=== PATIENT | female | born 1935 | race African-American/Black ===

== ENCOUNTER 2017-05-06 09:28 | Day surgery (SDC) | payer MEDICARE ==
[2017-05-05 13:03] VITALS: BMI 36.5
[~2017-05-06 09:28] MED LIST: FLU VACC TS2017-18 (>65YR) 0.5 ML SYRINGE IM ONE
[2017-05-06 10:05] LABS: Hematocrit 27.5 % (36.0-47.0); Mean Platelet Volume 7.4 fL (7.4-10.4); Red Blood Cell (RBC) Count 2.25 mill/uL (4.20-5.40); White Blood Cell (WBC) Count 2.8 thou/uL (4.8-10.8)
[2017-05-06 10:06] LABS: #Lymphocytes 0.4 thou/uL (1.20-3.40); #Monocytes 0.2 thou/uL (0.11-0.59); #Neutrophils 2.2 thou/uL (1.40-6.50); %Basophils 0.8 % (0.0-1.0); %Eosinophils 1.1 % (0.0-10.0); %Lymphocytes 13.8 % (21.0-51.0); %Monocytes 5.9 % (0.0-10.0)
[2017-05-06 10:07] LABS: PTT 31.8 SEC (22.9-36.1)
[2017-05-06 10:33] LABS: Macrocytosis MODERATE=16-30 cells (100X) (0-5/hpf); Polychromasia SLIGHT = 2-3 cells (100X) (0-2/hpf)
[2017-05-06] MEDS ORDERED: Sodium Bicarbonate 2.4 MEQ/5 ML ONE (10:54)
[2017-05-06] MEDS ORDERED: Lidocaine 1% PF 5 ML VIAL ONE (10:54)
[2017-05-06 12:12] VITALS: BP 115/71; TEMP 97.6
--- NOTE | 2017-05-06 13:33 | ULT ---
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 FINDINGS: Four quadrant ultrasound showed a moderate to large amount of ascites in all quadrants. The patient has never had a paracentesis procedure previously. Five liters of yellowish-clear acidic fluid remov ed from the right lower quadrant. The exam was terminated after 5 liters due to no history of prior abdominal paracentesis procedures. Post procedure ultrasound continues to show residual moderate asc ites. PROCEDURE NOTE: The procedure was discussed with the patient. The right lower quadrant was chosen for puncture. The overlying skin was prepped and draped in a sterile manner. Local anesthesia was administered with L idocaine and bicarbonate. A tiny skin incision was made with a scalpel. A 5 [place] catheter, w ith needle in place, was introduced into the acidic fluid in the right lower quadrant, under ultrasou nd guidance. The needle was removed, and the catheter was advanced. The catheter was attached to rushing ction and drainage. Five liters of acidic fluid was removed. There was no problems or complications . POS: BILL
== END 2017-05-06 11:55 | disposition home or self-care (01) ==
LOC: ULT 09:28
PROVIDERS: ATTEND Internal Medicine Gastroenterology
PROC: 0W9G3ZX Drainage of Peritoneal Cavity, Percutaneous Approach, Diagnostic (ICD-10-PCS; principal; 2017-05-06)
PROC: BW40ZZZ Ultrasonography of Abdomen (ICD-10-PCS; 2017-05-06)
DX: K75.4 Autoimmune hepatitis (principal); R18.8 Other ascites; E11.22 Type 2 diabetes mellitus with diabetic chronic kidney disease; I12.9 Hypertensive chronic kidney disease with stage 1 through stage 4 chronic kidney disease, or unspecified chronic kidney disease; N18.4 Chronic kidney disease, stage 4 (severe); E89.0 Postprocedural hypothyroidism; E78.5 Hyperlipidemia, unspecified; D64.9 Anemia, unspecified; Z79.899 Other long term (current) drug therapy; Z95.0 Presence of cardiac pacemaker; Z90.710 Acquired absence of both cervix and uterus
CPT/HCPCS: 36415; 49083; 85025; 85610; 85730; 88112; 88305; J2001

== ENCOUNTER 2017-06-24 07:13 | Day surgery (SDC) | payer MEDICARE ==
[2017-06-23 11:54] VITALS: BMI 41.1
[2017-06-24 07:58] LABS: INR-International Normal Ratio 1.3; PTT 31.8 SEC (22.9-36.1); Prothrombin Time 16.3 SEC (12.0-14.7)
[2017-06-24 08:09] LABS: #Eosinphils 0.1 thou/uL (0.0-0.7); #Lymphocytes 0.4 thou/uL (1.20-3.40); #Monocytes 0.1 thou/uL (0.11-0.59); #Neutrophils 1.8 thou/uL (1.40-6.50); %Eosinophils 2.9 % (0.0-10.0); %Lymphocytes 16.8 % (21.0-51.0); %Monocytes 4.1 % (0.0-10.0); %Neutrophils 76.3 % (42.0-75.0); Hemoglobin 9.5 g/dL (12.0-16.0); Mean Corpuscular HGB CONC 33.1 g/dL (32.0-36.0); Mean Platelet Volume 7.4 fL (7.4-10.4); Platelet Count 79 thou/uL (130-400); RBC Distribution Width 13.8 % (11.5-14.5); Red Blood Cell (RBC) Count 2.37 mill/uL (4.20-5.40); White Blood Cell (WBC) Count 2.4 thou/uL (4.8-10.8)
[2017-06-24] MEDS ORDERED: Sodium Bicarbonate 2.5 MEQ/5 ML VIAL ONE (08:27)
[2017-06-24 09:52] VITALS: TEMP 97.7
[2017-06-24 09:55] VITALS: BP 114/60
--- NOTE | 2017-06-24 11:28 | ULT ---
ULTRASOUND GUIDED PARACENTESIS: Date: 06-24-17 History: Symptomatic ascites. FINDINGS: Informed consent was obtained prior to the procedure. Pre-procedural imaging demonstrates significant ascites throughout the abdomen/pelvis. Skin overlying the mid right abdomen was prepped and draped in normal sterile fashion and anesthetize d with 1% buffered Lidocaine. With direct sonographic guidance, a Turkish Yueh needle is advanced into the ascites and removal of st ylet yields yellow fluid. 6 L were removed. Patient tolerated the procedure well. IMPRESSION: Successful ultrasound guided paracentesis yielding 6 L or yellow fluid. POS: [facility]
== END 2017-06-24 09:25 | disposition home or self-care (01) ==
LOC: ULT 07:13
PROVIDERS: ATTEND Internal Medicine
DX: R18.8 Other ascites (principal); K75.4 Autoimmune hepatitis; K74.60 Unspecified cirrhosis of liver; Z79.899 Other long term (current) drug therapy
CPT/HCPCS: 49083; 85025; 85610; 85730

== ENCOUNTER 2017-08-03 07:46 | Day surgery (SDC) | payer MEDICARE ==
[2017-08-02 12:59] VITALS: BMI 41.0
[2017-08-03 08:49] LABS: Hemoglobin 9.3 g/dL (12.0-16.0); Mean Corpuscular HGB CONC 33.2 g/dL (32.0-36.0); Mean Corpuscular Hemoglobin 38.1 pg (27.0-31.0); RBC Distribution Width 14.2 % (11.5-14.5); Red Blood Cell (RBC) Count 2.44 mill/uL (4.20-5.40); White Blood Cell (WBC) Count 2.3 thou/uL (4.8-10.8)
[2017-08-03 08:52] LABS: INR-International Normal Ratio 1.3; PTT 33.8 SEC (22.9-36.1); Prothrombin Time 16.5 SEC (12.0-14.7)
[2017-08-03 09:00] LABS: #Eosinphils 0.1 thou/uL (0.0-0.7); #Lymphocytes 0.5 thou/uL (1.20-3.40); #Monocytes 0.1 thou/uL (0.11-0.59); #Neutrophils 1.5 thou/uL (1.40-6.50); %Basophils 0.1 % (0.0-1.0); %Eosinophils 4.3 % (0.0-10.0); %Lymphocytes 23.2 % (21.0-51.0); %Monocytes 5.2 % (0.0-10.0); %Neutrophils 67.2 % (42.0-75.0); MDiff Complete? YES; Macrocytosis SLIGHT = 6-15 cells (100X) (0-5/hpf); PLT Morphology Comment Appears Decreased; Platelet Count 87 thou/uL (130-400)
[2017-08-03] MEDS ORDERED: FLU VACC TS2017-18 (>65YR) 0.5 ML SYRINGE IM ONE (09:00)
--- NOTE | 2017-08-03 11:35 | ULT ---
ULTRASOUND GUIDED PARACENTESIS WITH IMAGING: HISTORY: Ascites. COMPARISON: Ultrasound and paracentesis 06/24/17. FINDINGS: The patient was brought to the ultrasound suite and all questions were answered. The patient's right lower quadrant was prepped and draped in a normal sterile fashion. Five mL of bu ffered Lidocaine was instilled into the superficial and deep soft tissues. Informed consent was obta ined. Timeout was already performed. After adequate local anesthesia, a small dermatotomy was made. Using a 5 Guatemalan Yueh needle, the per itoneal space was accessed. Subsequently, straw-colored fluid was aspirated. The patient tolerated the procedure well without complication. IMPRESSION: Technically successful ultrasound-guided paracentesis. POS: BILL
[2017-08-03 11:40] VITALS: BP 124/74; TEMP 98
== END 2017-08-03 10:10 | disposition home or self-care (01) ==
LOC: ULT 07:46
PROVIDERS: ATTEND Internal Medicine Gastroenterology
PROC: 0W9G3ZX Drainage of Peritoneal Cavity, Percutaneous Approach, Diagnostic (ICD-10-PCS; principal; 2017-08-03)
PROC: BW40ZZZ Ultrasonography of Abdomen (ICD-10-PCS; 2017-08-03)
DX: R18.8 Other ascites (principal); K75.4 Autoimmune hepatitis; N18.9 Chronic kidney disease, unspecified; I85.00 Esophageal varices without bleeding; D61.818 Other pancytopenia; Z79.899 Other long term (current) drug therapy
CPT/HCPCS: 36415; 49083; 85025; 85610; 85730; 88112; 88305

== ENCOUNTER 2017-08-24 08:08 | Day surgery (SDC) | payer MEDICARE ==
[2017-08-24] MEDS ORDERED: Albumin 25% 200 ML ONE (08:54)
[2017-08-24] MEDS ORDERED: Sodium Chloride 0.9% 20 ML ONE (09:17)
[2017-08-24 11:08] VITALS: BP 115/74; TEMP 97.7
[2017-08-24 11:21] VITALS: BMI 38.2
--- NOTE | 2017-08-24 12:09 | ULT ---
ULTRASOUND GUIDED PARACENTESIS: Date: 08/24/17 HISTORY: Ascites. COMPARISON: 08/03/17. FINDINGS: Technically successful ultrasound guided paracentesis. A total of 6 liters of yellow-colored ascites aspirated. The patient tolerated the procedure well. No immediate or postprocedural complications. TECHNIQUE: Consent obtained to perform an ultrasound guided paracentesis. Right lower quadrant was deemed approp riate. Skin was prepped and draped in the sterile fashion. 1% lidocaine, buffered with sodium bicarbo fito, was used for local anesthesia. Under ultrasound guidance, a 5 Icelandic 7.0 cm Apliiq catheter was a dvanced into the peritoneal space. A total of 6 liters of yellow-colored ascites was aspirated. The p atient tolerated the procedure well. No immediate or postprocedural complication. IMPRESSION: Technically successful ultrasound guided paracentesis. POS: [facility]
== END 2017-08-24 10:50 | disposition home or self-care (01) ==
LOC: ULT 08:08
PROVIDERS: ATTEND Internal Medicine Gastroenterology
PROC: 0W9G3ZZ Drainage of Peritoneal Cavity, Percutaneous Approach (ICD-10-PCS; principal; 2017-08-24)
DX: R18.8 Other ascites (principal); K74.69 Other cirrhosis of liver; K75.4 Autoimmune hepatitis; N18.9 Chronic kidney disease, unspecified; Z79.899 Other long term (current) drug therapy
CPT/HCPCS: 49083; P9047; A4216

== ENCOUNTER → 2017-09-14 | Day surgery (SDC) | payer MEDICARE ==
[~2017-09-14] MED LIST changes: -FLU VACC TS2017-18 (>65YR) 0.5 ML SYRINGE IM ONE; +Lidocaine 1% PF 5 ML VIAL ONE; +Prevnar 13-Val Conj/PF 0.5 ML SYRINGE IM ONE
[2017-09-14 09:21] LABS: INR-International Normal Ratio 1.3
[2017-09-14 09:22] LABS: PTT 32.3 SEC (22.9-36.1)
[2017-09-14 09:30] LABS: #Eosinphils 0.1 thou/uL (0.0-0.7); #Lymphocytes 0.4 thou/uL (1.20-3.40); #Monocytes 0.1 thou/uL (0.11-0.59); #Neutrophils 2.2 thou/uL (1.40-6.50); %Basophils 1.7 % (0.0-1.0); %Eosinophils 3.7 % (0.0-10.0); %Lymphocytes 14.7 % (21.0-51.0); %Monocytes 4.5 % (0.0-10.0); %Neutrophils 75.4 % (42.0-75.0); Hemoglobin 10.4 g/dL (12.0-16.0); Mean Corpuscular HGB CONC 32.2 g/dL (32.0-36.0); Mean Corpuscular Hemoglobin 36.3 pg (27.0-31.0); Mean Platelet Volume 7.9 fL (7.4-10.4); Platelet Count 91 thou/uL (130-400); RBC Distribution Width 13.1 % (11.5-14.5); Red Blood Cell (RBC) Count 2.87 mill/uL (4.20-5.40); White Blood Cell (WBC) Count 2.9 thou/uL (4.8-10.8)
[2017-09-14 09:48] LABS: MDiff Complete? YES; Macrocytosis MODERATE=16-30 cells (100X) (0-5/hpf); PLT Morphology Comment Appears Decreased; Polychromasia SLIGHT = 2-3 cells (100X) (0-2/hpf)
--- NOTE | 2017-09-14 13:13 | ULT ---
SONOGRAPHICALLY GUIDED PARACENTESIS: History: Return ascites. FINDINGS: After explaining the procedure and answering all questions, sonographic survey shows a large amount o f fluid within the abdomen. Sterile technique, buffered local anesthesia, sonographic guidance and ri t lower quadrant approach were used to carefully advance a 19 gauge Yueh needle and catheter into t he free fluid. Catheter was left to drain a total volume of 6.0L clear yellow ascites. Catheter was r emoved, showing moderate amount of residual fluid. Patient tolerated the procedure well and was dismi ssed in good condition. IMPRESSION: 1. Technically successful sonographically guided paracentesis. POS: [facility]
== END ==
LOC: ULT 08:23
PROVIDERS: ATTEND Internal Medicine Gastroenterology
PROC: 0W9G3ZZ Drainage of Peritoneal Cavity, Percutaneous Approach (ICD-10-PCS; principal; 2017-09-14)
DX: R18.8 Other ascites (principal); K75.4 Autoimmune hepatitis; K74.69 Other cirrhosis of liver; N18.9 Chronic kidney disease, unspecified; D61.818 Other pancytopenia; Z79.899 Other long term (current) drug therapy
CPT/HCPCS: 36415; 49083; 85025; 85610; 85730; J2001

== ENCOUNTER 2017-10-05 08:07 | Day surgery (SDC) | payer MEDICARE ==
[2017-10-04 12:45] VITALS: BMI 35.5
[2017-10-05] MEDS ORDERED: Albumin 25% 200 ML ONE (08:53)
[2017-10-05 10:55] VITALS: BP 124/70; TEMP 97.7
--- NOTE | 2017-10-05 11:53 | ULT ---
ULTRASOUND GUIDED PARACENTESIS: Date: 10/05/17 HISTORY: Ascites. COMPARISON: 09/14/17. FINDINGS: Technically successful ultrasound guided paracentesis. A total of 3,500 mL of yellow-colored ascites aspirated. No immediate or postprocedure complications. TECHNIQUE: Consent obtained for ultrasound guided paracentesis. The patient's abdomen was evaluated. Right lower quadrant deemed appropriate. Skin was prepped and draped in the sterile fashion. 1% lidocaine, buffe red with sodium bicarbonate, was used for local anesthesia. Under ultrasound guidance, a 5 [place] 7 c m [place] catheter was advanced into the peritoneal space. A total of 3,500 mL of yellow-colored ascites was aspirated. The patient tolerated the procedure well. No immediate or postprocedure complication. IMPRESSION: Successful ultrasound guided paracentesis. POS: BILL
== END 2017-10-05 10:15 | disposition home or self-care (01) ==
LOC: ULT 08:07
PROVIDERS: ATTEND Internal Medicine Gastroenterology
PROC: 0W9G3ZZ Drainage of Peritoneal Cavity, Percutaneous Approach (ICD-10-PCS; principal; 2017-10-05)
PROC: BW40ZZZ Ultrasonography of Abdomen (ICD-10-PCS; 2017-10-05)
DX: R18.8 Other ascites (principal); K74.60 Unspecified cirrhosis of liver; I85.10 Secondary esophageal varices without bleeding; K75.4 Autoimmune hepatitis; N18.9 Chronic kidney disease, unspecified; D61.818 Other pancytopenia; Z79.899 Other long term (current) drug therapy
CPT/HCPCS: 49083; P9047

== ENCOUNTER 2017-10-26 08:46 | Day surgery (SDC) | payer MEDICARE ==
[2017-10-26] MEDS ORDERED: Sodium Chloride 0.9% 10 ML ONE (09:08)
[2017-10-26] MEDS ORDERED: Albumin 25% 200 ML ONE ×2 (09:08→09:09)
[2017-10-26] MEDS ORDERED: Sodium Bicarbonate 2.5 MEQ/5 ML VIAL ONE (09:08)
[2017-10-26] MEDS ORDERED: Lidocaine 1% PF 5 ML VIAL ONE (09:09)
[2017-10-26 09:15] LABS: INR-International Normal Ratio 1.2; PTT 31.3 SEC (22.9-36.1); Prothrombin Time 15.6 SEC (12.0-14.7)
[2017-10-26 09:24] LABS: #Eosinphils 0.2 thou/uL (0.0-0.7); #Lymphocytes 0.5 thou/uL (1.20-3.40); #Monocytes 0.2 thou/uL (0.11-0.59); #Neutrophils 1.9 thou/uL (1.40-6.50); %Eosinophils 6.4 % (0.0-10.0); %Lymphocytes 18.1 % (21.0-51.0); %Monocytes 6.5 % (0.0-10.0); Hemoglobin 10.6 g/dL (12.0-16.0); Mean Corpuscular HGB CONC 34.5 g/dL (32.0-36.0); Mean Corpuscular Hemoglobin 37.4 pg (27.0-31.0); Mean Platelet Volume 7.2 fL (7.4-10.4); Platelet Count 83 thou/uL (130-400); RBC Distribution Width 13.7 % (11.5-14.5); Red Blood Cell (RBC) Count 2.84 mill/uL (4.20-5.40); White Blood Cell (WBC) Count 2.7 thou/uL (4.8-10.8)
--- NOTE | 2017-10-26 11:31 | ULT ---
ULTRASOUND GUIDED ABDOMINAL PARACENTESIS: INDICATIONS: Recurrent ascites. Cirrhosis. FINDINGS: 3900 mL of yellowish-clear acidic fluid was removed from the left abdomen. PROCEDURE NOTE: A four quadrant ultrasound showed moderate ascites in all quadrants. The left abdomen was chosen for puncture. The overlying skin was prepped and draped in a sterile manner. Local anesthesia was admi nistered with Lidocaine and bicarbonate. A tiny skin jaylene was made with a scalpel. A 5 [place]au[place] catheter with needle in place was introduced into the fluid of the left mid abdomen, under ultrasound guidance. The catheter was advanced as the needle was removed. The catheter was attached to suctio n drainage, and 3900 mL of acidic fluid was removed. The patient tolerated the procedure well, and there were no problems or complications. POS: BILL
[2017-10-26 13:00] VITALS: BMI 35.5
[2017-10-26 13:02] VITALS: BP 116/50; TEMP 97.5
== END 2017-10-26 10:50 | disposition home or self-care (01) ==
LOC: ULT 08:46
PROVIDERS: ATTEND Internal Medicine Gastroenterology
PROC: 0W9G3ZZ Drainage of Peritoneal Cavity, Percutaneous Approach (ICD-10-PCS; principal; 2017-10-26)
DX: R18.8 Other ascites (principal); K74.60 Unspecified cirrhosis of liver; N18.9 Chronic kidney disease, unspecified; D61.818 Other pancytopenia; I85.00 Esophageal varices without bleeding; K75.4 Autoimmune hepatitis; Z79.899 Other long term (current) drug therapy
CPT/HCPCS: 49083; 85025; 85610; 85730; P9047; 36415; A4216; J2001

== ENCOUNTER 2017-11-16 09:48 | Day surgery (SDC) | payer MEDICARE ==
[2017-11-15 13:36] VITALS: BMI 35.5
[~2017-11-16 09:48] MED LIST changes: -Lidocaine 1% PF 5 ML VIAL ONE
[2017-11-16 11:57] VITALS: TEMP 98
[2017-11-16 11:59] VITALS: BP 107/61
--- NOTE | 2017-11-16 14:23 | ULT ---
ULTRASOUND GUIDED PARACENTESIS: Date: 11/16/17 HISTORY: Symptomatic ascites. FINDINGS: Informed consent obtained prior to the procedure. Preprocedural imaging demonstrates significant asci ritu throughout the abdomen/pelvis. Right lower quadrant prepped and draped in the normal sterile community health ion. Skin overlying the entry site was anesthetized with 1% buffered lidocaine. With direct sonograph ic guidance, a 5 Italian Yueh catheter was advanced into the ascites in the right lower quadrant and r emoval of stylette yields dark corinne/brown fluid. 4,600 mL were removed. The patient tolerated the pr ocedure well. IMPRESSION: Successful ultrasound guided thoracentesis, yielding 4,600 mL of brown/corinne fluid. POS: [facility]
== END 2017-11-16 11:40 | disposition home or self-care (01) ==
LOC: ULT 09:48
PROVIDERS: ATTEND Internal Medicine Gastroenterology
PROC: 0W9G3ZZ Drainage of Peritoneal Cavity, Percutaneous Approach (ICD-10-PCS; principal; 2017-11-16)
DX: R18.8 Other ascites (principal); K74.60 Unspecified cirrhosis of liver
CPT/HCPCS: 49083

== ENCOUNTER → 2017-12-07 | Day surgery (SDC) | payer MEDICARE ==
[~2017-12-07] MED LIST changes: +Albumin 25% 200 ML ONE; +Lidocaine 1% PF 5 ML VIAL ONE; +Sodium Bicarbonate 2.5 MEQ/5 ML VIAL ONE
[2017-12-07 10:17] LABS: INR-International Normal Ratio 1.3; PTT 32.9 SEC (22.9-36.1); Prothrombin Time 15.8 SEC (12.0-14.7)
[2017-12-07 10:46] LABS: #Eosinphils 0.1 thou/uL (0.0-0.7); #Lymphocytes 0.3 thou/uL (1.20-3.40); #Monocytes 0.2 thou/uL (0.11-0.59); #Neutrophils 1.2 thou/uL (1.40-6.50); %Basophils 1.4 % (0.0-1.0); %Eosinophils 3.6 % (0.0-10.0); %Lymphocytes 19.3 % (21.0-51.0); %Monocytes 8.6 % (0.0-10.0); %Neutrophils 67.1 % (42.0-75.0); MDiff Complete? YES; Macrocytosis SLIGHT = 6-15 cells (100X) (0-5/hpf); Mean Corpuscular HGB CONC 33.1 g/dL (32.0-36.0); Platelet Count 69 thou/uL (130-400); RBC Distribution Width 12.7 % (11.5-14.5); Red Blood Cell (RBC) Count 2.77 mill/uL (4.20-5.40); White Blood Cell (WBC) Count 1.8 thou/uL (4.8-10.8)
--- NOTE | 2017-12-07 12:44 | ULT ---
ABDOMINAL PARACENTESIS: ultrasound guided INDICATIONS: Recurrent ascites. FINDINGS: Dark yellowish acidic fluid, 3900 mL, was removed from the right lower quadrant. PROCEDURE: Abdominal scan shows mild to moderate ascites in all quadrants. The right lower quadrant was chosen for puncture. The overlying skin was prepped and draped in a sterile manner. Local anesthesia was a dministered with Lidocaine and bicarbonate. A tiny skin incision was made. A 5 Telugu Yueh needle a nd catheter were advanced into the acidic fluid in the right lower quadrant, under ultrasound guidanc e. The catheter was advanced as the needle was removed. The catheter was attached to suction draina ge, and 3900 mL of fluid was removed. There were no problems or complications. POS: BILL
[2017-12-07 13:44] VITALS: TEMP 97.6
== END ==
LOC: ULT 09:40
PROVIDERS: ATTEND Internal Medicine Gastroenterology
PROC: 0W9G3ZZ Drainage of Peritoneal Cavity, Percutaneous Approach (ICD-10-PCS; principal; 2017-12-07)
DX: R18.8 Other ascites (principal); K74.60 Unspecified cirrhosis of liver; K75.4 Autoimmune hepatitis; I13.0 Hypertensive heart and chronic kidney disease with heart failure and stage 1 through stage 4 chronic kidney disease, or unspecified chronic kidney disease; E11.22 Type 2 diabetes mellitus with diabetic chronic kidney disease; N18.9 Chronic kidney disease, unspecified; D61.818 Other pancytopenia; I85.10 Secondary esophageal varices without bleeding; E03.9 Hypothyroidism, unspecified; I44.2 Atrioventricular block, complete; Z79.899 Other long term (current) drug therapy
CPT/HCPCS: 49083; 85025; 85610; 85730; P9047; 36415; J2001

== ENCOUNTER → 2017-12-29 | Day surgery (SDC) | payer MEDICARE ==
[2017-12-28 10:48] VITALS: BMI 35.5
[~2017-12-29] MED LIST changes: +Albumin 25% 100 ML ONE; -Albumin 25% 200 ML ONE; -Prevnar 13-Val Conj/PF 0.5 ML SYRINGE IM ONE; -Sodium Bicarbonate 2.5 MEQ/5 ML VIAL ONE
[2017-12-29 11:58] VITALS: TEMP 98.1
--- NOTE | 2017-12-29 13:54 | ULT ---
ULTRASOUND GUIDED PARACENTESIS THERAPEUTIC: Date: 12/29/17 HISTORY: 82-year-old female with symptomatic ascites, abdominal distention. TECHNIQUE: Signed, informed consent obtained. Ultrasound survey of all four quadrants of abdomen. Right lower qu adrant selected. Overlying skin prepared and draped in the usual sterile fashion. 25 gauge needle use d to apply buffered lidocaine superficially and deeply. 5 Malian Yueh catheter with stylette advanced in tandem with the 25 gauge needle. The 25 gauge needle and the stylette of the Yueh catheter were r emoved. Yueh catheter connected to series of evacuated bottles via plastic tubing. Ascites fluid umm saab. Yueh catheter removed. Patient tolerated the procedure well. No complications. FINDINGS: Prior to the procedure, ultrasound images demonstrate large volume of free intraperitoneal fluid. Pos tprocedure image demonstrates small amount of residual fluid in the right lower quadrant. A total of 4,850 mL of ascites fluid was drained. IMPRESSION: Successful therapeutic paracentesis, with drainage of 4.85 liters of ascites fluid. POS: [facility]
== END ==
LOC: ULT 09:55
PROVIDERS: ATTEND Internal Medicine Gastroenterology
PROC: 0W9G3ZZ Drainage of Peritoneal Cavity, Percutaneous Approach (ICD-10-PCS; principal; 2017-12-29)
DX: R18.8 Other ascites (principal); K74.60 Unspecified cirrhosis of liver; J45.909 Unspecified asthma, uncomplicated; M19.90 Unspecified osteoarthritis, unspecified site; I13.0 Hypertensive heart and chronic kidney disease with heart failure and stage 1 through stage 4 chronic kidney disease, or unspecified chronic kidney disease; I50.9 Heart failure, unspecified; I44.2 Atrioventricular block, complete; E03.9 Hypothyroidism, unspecified; N18.9 Chronic kidney disease, unspecified; E78.5 Hyperlipidemia, unspecified; I27.20 Pulmonary hypertension, unspecified
CPT/HCPCS: 49083; P9047; J2001

== ENCOUNTER 2018-02-09 09:25 | Day surgery (SDC) | payer MEDICARE ==
[~2018-02-09 09:25] MED LIST changes: -Albumin 25% 100 ML ONE; +Sodium Bicarbonate 2.5 MEQ/5 ML VIAL ONE; +Sodium Chloride 0.9% 10 ML ONE
[2018-02-09 10:13] LABS: INR-International Normal Ratio 1.2; PTT 33.6 SEC (22.9-36.1); Prothrombin Time 15.5 SEC (12.0-14.7)
[2018-02-09 10:29] LABS: #Eosinphils 0.1 thou/uL (0.0-0.7); #Lymphocytes 0.4 thou/uL (1.20-3.40); #Monocytes 0.1 thou/uL (0.11-0.59); #Neutrophils 1.2 thou/uL (1.40-6.50); %Eosinophils 6.3 % (0.0-10.0); %Lymphocytes 19.5 % (21.0-51.0); %Monocytes 6.7 % (0.0-10.0); %Neutrophils 67.5 % (42.0-75.0); Hemoglobin 9.9 g/dL (12.0-16.0); Mean Corpuscular Hemoglobin 34.3 pg (27.0-31.0); Mean Platelet Volume 7.6 fL (7.4-10.4); PLT Morphology Comment Appears Decreased; Platelet Count 68 thou/uL (130-400); RBC Distribution Width 13.4 % (11.5-14.5); White Blood Cell (WBC) Count 1.8 thou/uL (4.8-10.8)
[2018-02-09 13:40] VITALS: BMI 35.5
[2018-02-09 13:47] VITALS: BP 118/62; TEMP 97.4
--- NOTE | 2018-02-09 15:32 | ULT ---
LIVER ULTRASOUND: HISTORY: Cirrhosis. FINDINGS: Real-time imaging of the liver shows a coarse, echogenic texture to the liver. The liver measures 15 .7 cm in length. There are no focal discrete masses identified. The gallbladder shows echogenic mat erial within the gallbladder lumen, which is probably related to sludge. No definite stones are iden tified. The spleen is markedly enlarged and measures 15.7 cm in length. On Doppler evaluation with spectral analysis, there are normal flow patterns seen within the liver. Trace ascites is noted. IMPRESSION: 1. Coarse, echogenic texture to the liver, with marked splenomegaly. 2. Gallbladder sludge. 3. Minimal ascites. The patient had a paracentesis performed earlier. POS: [facility]
--- NOTE | 2018-02-09 16:02 | ULT ---
ULTRASOUND GUIDED PARACENTESIS: 02/09/18 HISTORY: Recurrent ascites, autoimmune liver disease. After informed consent was obtained, the patient was prepped and draped in the sterile fashion. The l argest pocket of fluid was in the right lower quadrant. Local anesthesia obtained with 1% Xylocaine m ixed with sodium bicarb. Small skin incision was made with the #11 scalpel blade. A 6 Wol[place] Yueh cat heter was introduced without difficulty. Three liters of clear colored CSF fluid were obtained. There were no immediate complications of the procedure. IMPRESSION: Ultrasound guided paracentesis of 3 liters of fluid. POS: [facility]
== END 2018-02-09 12:15 | disposition short-term general hospital (02) ==
LOC: ULT 09:25
PROVIDERS: ATTEND Internal Medicine Gastroenterology
PROC: 0W9G3ZZ Drainage of Peritoneal Cavity, Percutaneous Approach (ICD-10-PCS; principal; 2018-02-09)
DX: R18.8 Other ascites (principal); K74.60 Unspecified cirrhosis of liver; K76.89 Other specified diseases of liver
CPT/HCPCS: 36415; 49083; 76705; 85025; 85610; 85730; A4216; J2001

== ENCOUNTER 2018-05-04 11:01 | Day surgery (SDC) | payer MEDICARE ==
[2018-05-03 14:41] VITALS: BMI 35.5
[2018-05-04] MEDS ORDERED: Sodium Bicarbonate 2.5 MEQ/5 ML VIAL ONE (11:27)
[2018-05-04] MEDS ORDERED: Albumin 25% 100 ML ONE (11:31)
[2018-05-04 11:36] LABS: #Eosinphils 0.1 thou/uL (0.0-0.7); #Lymphocytes 0.4 thou/uL (1.20-3.40); #Monocytes 0.1 thou/uL (0.11-0.59); #Neutrophils 1.4 thou/uL (1.40-6.50); %Basophils 0.5 % (0.0-1.0); %Eosinophils 5.5 % (0.0-10.0); %Monocytes 6.2 % (0.0-10.0); %Neutrophils 70.7 % (42.0-75.0); Mean Corpuscular HGB CONC 32.7 g/dL (32.0-36.0); Mean Corpuscular Hemoglobin 33.7 pg (27.0-31.0); Mean Platelet Volume 8.1 fL (7.4-10.4); Platelet Count 66 thou/uL (130-400); RBC Distribution Width 13.4 % (11.5-14.5); Red Blood Cell (RBC) Count 2.96 mill/uL (4.20-5.40)
[2018-05-04 11:39] LABS: INR-International Normal Ratio 1.2; PTT 34.9 SEC (22.9-36.1); Prothrombin Time 15.7 SEC (12.0-14.7)
[2018-05-04 12:24] VITALS: BP 95/50; TEMP 97.9
--- NOTE | 2018-05-04 13:24 | ULT ---
LIMITED ULTRASOUND ABDOMEN: Date: 05-04-18 History: Ascites. FINDINGS: Patient presented today for paracentesis. However, sonographic evaluation of the abdomen only demonst rated a very small amount of intraperitoneal free fluid. Areas of free fluid also demonstrated multip le loops of bowel within the area of free fluid. No significant fluid collection is present. IMPRESSION: Very small amount of intraperitoneal free fluid. The small amount of free fluid in the abdomen preclu angie paracentesis at this time. Findings were discussed with the patient. POS: BILL
== END 2018-05-04 12:00 | disposition home or self-care (01) ==
LOC: ULT 11:01
PROVIDERS: ATTEND Internal Medicine Gastroenterology
DX: R18.8 Other ascites (principal); K74.60 Unspecified cirrhosis of liver; K75.4 Autoimmune hepatitis; N18.9 Chronic kidney disease, unspecified; Z79.899 Other long term (current) drug therapy; Z53.8 Procedure and treatment not carried out for other reasons
CPT/HCPCS: 76705; 85025; 85610; 85730; P9047

== ENCOUNTER 2018-10-10 09:16 | Day surgery (SDC) | payer MEDICARE ==
[2018-10-07 16:38] VITALS: BMI 37.1
[2018-10-10] MEDS ORDERED: PROPOFOL 200 MG/20 ML VIAL ONE (13:18)
--- NOTE | 2018-10-10 16:28 | OP ---
DATE OF PROCEDURE: 10/10/2018 PROCEDURE PERFORMED: Esophagogastroduodenoscopy. PREOPERATIVE DIAGNOSIS: Surveillance of esophageal varices. DESCRIPTION OF PROCEDURE: Informed consent was obtained from the patient. She was sedated with total intravenous anesthesia. The bite block was placed and the endoscope was advanced easily to the second portion of the duodenum and retroflexion was performed in the stomach. The esophagus had a single column grade 1 esophageal varix that flattened completely with insufflation. The esophagus was otherwise normal. The stomach had minimal patchy erythema in the antrum. The gastric mucosa was otherwise normal. There were no gastric varices present. The pylorus and first and second portions of the duodenum were normal. IMPRESSION: 1. Grade 1 esophageal varix, flattened completely with insufflation. 2. Otherwise normal esophagogastroduodenoscopy. RECOMMENDATIONS: Follow up in GI clinic in 6 weeks. Job ID: [id number]
== END 2018-10-10 12:15 | disposition home or self-care (01) ==
LOC: SDC 09:16
PROVIDERS: ATTEND Internal Medicine Gastroenterology
PROC: 0DJ08ZZ Inspection of Upper Intestinal Tract, Via Natural or Artificial Opening Endoscopic (ICD-10-PCS; principal; 2018-10-10)
DX: K74.60 Unspecified cirrhosis of liver (principal); I85.10 Secondary esophageal varices without bleeding; K75.4 Autoimmune hepatitis; I12.9 Hypertensive chronic kidney disease with stage 1 through stage 4 chronic kidney disease, or unspecified chronic kidney disease; N18.9 Chronic kidney disease, unspecified; M19.90 Unspecified osteoarthritis, unspecified site; E89.0 Postprocedural hypothyroidism; E66.3 Overweight; Z68.39 Body mass index [BMI] 39.0-39.9, adult; Z95.0 Presence of cardiac pacemaker; Z79.84 Long term (current) use of oral hypoglycemic drugs; Z79.899 Other long term (current) drug therapy
CPT/HCPCS: J2704

== ENCOUNTER 2020-01-30 08:25 | Outpatient (CLI) | payer MEDICARE ==
--- NOTE | 2020-01-30 10:31 | ULT ---
HEPATIC ULTRASOUND WITH COHEN SCALE AND COLOR FLOW AND SPECTRAL DOPPLER IMAGING: HISTORY: Hepatitis. FINDINGS: The liver demonstrate coarse echogenicity and a nodular surface without focal mass or intrahepatic du ctal dilatation. No gallstones. Mild gallbladder wall thickening is seen. The spleen is borderline measuring 13 cm in length. The common duct measures 2 mm in diameter. The pancreas is normal. The re is free fluid surrounding the gallbladder and superior to the liver. There is normal flow and spectral waveforms in the hepatic, portal, and splenic vasculature. IMPRESSION: 1. Cirrhosis of the liver. 2. Borderline splenomegaly. 3. Ascites. POS: OFF
== END 2020-01-30 08:26 | disposition home or self-care (01) ==
LOC: BICULT 08:25
PROVIDERS: ATTEND Physician Assistant Medical
DX: K74.60 Unspecified cirrhosis of liver (principal); K75.4 Autoimmune hepatitis; R18.8 Other ascites; I85.00 Esophageal varices without bleeding; R16.1 Splenomegaly, not elsewhere classified
CPT/HCPCS: 76705

== ENCOUNTER 2020-07-25 22:22 | Inpatient (IN) | payer MEDICARE, MEDICAID ==
[2020-07-25] MEDS ORDERED: Vancomycin 1 GM/200 ML BAG ONE ×2 (22:45→23:25)
[2020-07-26] MEDS ORDERED: Dextrose 5% in Water 1,000 ML IV PRN (00:07)
[2020-07-26] MEDS ORDERED: Dextrose 50% Abboject 50 ML SYRINGE SLOW IVP PRN (00:07)
[2020-07-26] MEDS ORDERED: Acetaminophen 325 MG TAB PO PRN (00:10)
[2020-07-26] MEDS ORDERED: Calcium Carbonate 500 MG ChewTAB PO PRN (00:10)
[2020-07-26] MEDS ORDERED: Senokot S 8.6-50 MG TAB PO PRN (00:10)
[2020-07-26] MEDS ORDERED: Ondansetron ODT 4 MG TAB PO PRN (00:10)
[2020-07-26] MEDS ORDERED: Ondansetron PF 4 MG/2 ML Vial IVP PRN (00:10)
[2020-07-26] MEDS ORDERED: Cefepime 1 GM in Sodium Chloride 0.9% 100 ML IVPB SCH (01:00)
[2020-07-26 01:34] VITALS: BMI 35.8
[2020-07-26] MEDS: HumaLOG 300 UNITS/3 ML VIAL SC PRN ×5 (02:09→22:23)
[2020-07-26 03:17] LABS: Hemoglobin A1c 8.5 % (4.0-6.0)
[2020-07-26 03:26] LABS: #Lymphocytes 0.2 thou/uL (1.20-3.40); #Monocytes 0.2 thou/uL (0.11-0.59); #Neutrophils 2.6 thou/uL (1.40-6.50); %Eosinophils 0.1 % (0.0-10.0); %Lymphocytes 7.1 % (21.0-51.0); %Monocytes 6.7 % (0.0-10.0); %Neutrophils 86.2 % (42.0-75.0); Hemoglobin 8.7 g/dL (12.0-16.0); Mean Corpuscular HGB CONC 34.3 g/dL (32.0-36.0); Mean Corpuscular Hemoglobin 38.9 pg (27.0-31.0); Mean Platelet Volume 9.8 fL (7.4-10.4); Platelet Count 41 thou/uL (130-400); RBC Distribution Width 15.3 % (11.5-14.5); Red Blood Cell (RBC) Count 2.23 mill/uL (4.20-5.40)
[2020-07-26 03:29] LABS: Anion Gap 13 mmol/L (10-20); BUN (Urea Nitrogen) 26 mg/dL (9.8-20.1); Calc. Creatinine Clearance 33 mL/min (70-130); Carbon Dioxide 21 mmol/L (23-31); Chloride 100 mmol/L (98-107); Glucose 490 mg/dL (83-110); Potassium 4.6 mmol/L (3.5-5.1); Sodium 129 mmol/L (136-145)
[2020-07-26] MEDS ORDERED: NPH, Human Insulin Isophane 300 UNIT/3 ML VIAL SC SCH (03:30)
[2020-07-26] MEDS: Levothyroxine Sodium 100 MCG TAB PO SCH (05:37)
[2020-07-26] MEDS ORDERED: Sodium Chloride 0.9% 1,000 ML IV SCH (08:15)
[2020-07-26] MEDS: Alogliptin 25 MG TAB PO SCH (08:49)
[2020-07-26] MEDS: Folic Acid 1 MG TAB PO SCH (08:50)
[2020-07-26] MEDS: Calcitriol 0.25 MCG CAP PO SCH ×3 (08:50→22:19)
[2020-07-26] MEDS: azaTHIOprine 50 MG TAB PO SCH (08:50)
[2020-07-26] MEDS: Famotidine 20 MG TAB PO SCH (08:50)
[2020-07-26] MEDS ORDERED: Enoxaparin Sodium 30 MG/0.3 ML SYRINGE SC SCH (09:00)
[2020-07-26] MEDS ORDERED: Non-Formulary Item 1 EACH (Folic Acid [Folic Acid] 0.8 MG Capsule) PO SCH (09:00)
[2020-07-26 09:32] LABS: SARS-CoV-2 PCR by NAA Not Detected (NotDetected)
[2020-07-26] MEDS: cefTRIAXone\\ROCEPHIN 1 GM in Sodium Chloride 0.9% 100 ML IVPB SCH (17:22)
[2020-07-26 17:48] LABS: Anion Gap 12 mmol/L (10-20); BUN (Urea Nitrogen) 26 mg/dL (9.8-20.1); Calc. Creatinine Clearance 39 mL/min (70-130); Calcium 7.3 mg/dL (7.8-10.44); Carbon Dioxide 23 mmol/L (23-31); Chloride 102 mmol/L (98-107); Glucose 195 mg/dL (83-110); Sodium 133 mmol/L (136-145)
[2020-07-26 20:19] LABS: Vancomycin, Random 12.6 ug/mL (See Comment)
[2020-07-26] MEDS ORDERED: Vancomycin 1 GM in Premix Bag 1 BAG IVPB SCH (21:00)
[2020-07-26] MEDS: Insulin Glargine 12 UNITS in Pre-Filled Syringe 1 EACH SC SCH (22:19)
[2020-07-27 04:50] LABS: #Lymphocytes 0.3 thou/uL (1.20-3.40); #Monocytes 0.1 thou/uL (0.11-0.59); #Neutrophils 1.6 thou/uL (1.40-6.50); %Eosinophils 0.9 % (0.0-10.0); %Lymphocytes 14.6 % (21.0-51.0); %Monocytes 5.6 % (0.0-10.0); %Neutrophils 78.8 % (42.0-75.0); Hemoglobin 8.6 g/dL (12.0-16.0); Mean Corpuscular Hemoglobin 40.2 pg (27.0-31.0); Mean Platelet Volume 9.6 fL (7.4-10.4); Platelet Count 39 thou/uL (130-400); RBC Distribution Width 15.4 % (11.5-14.5); Red Blood Cell (RBC) Count 2.14 mill/uL (4.20-5.40); White Blood Cell (WBC) Count 2.1 thou/uL (4.8-10.8)
[2020-07-27] MEDS: Levothyroxine Sodium 100 MCG TAB PO SCH (05:14)
[2020-07-27 05:16] LABS: Anion Gap 12 mmol/L (10-20); BUN (Urea Nitrogen) 26 mg/dL (9.8-20.1); Calc. Creatinine Clearance 44 mL/min (70-130); Calcium 7.2 mg/dL (7.8-10.44); Carbon Dioxide 23 mmol/L (23-31); Chloride 101 mmol/L (98-107); Glucose 252 mg/dL (83-110); Potassium 4.1 mmol/L (3.5-5.1); Sodium 132 mmol/L (136-145)
[2020-07-27] MEDS: HumaLOG 300 UNITS/3 ML VIAL SC PRN ×4 (05:54→20:59)
[2020-07-27] MEDS: azaTHIOprine 50 MG TAB PO SCH (07:58)
[2020-07-27] MEDS: Alogliptin 25 MG TAB PO SCH (07:59)
[2020-07-27] MEDS: Folic Acid 1 MG TAB PO SCH (07:59)
[2020-07-27] MEDS: Calcitriol 0.25 MCG CAP PO SCH ×3 (07:59→20:54)
[2020-07-27] MEDS: Famotidine 20 MG TAB PO SCH (07:59)
[2020-07-27] MEDS ORDERED: Calcium Gluc 4.6 MEQ/10 ML (100 MG/ML) SLOW IVP SCH (15:08)
[2020-07-27] MEDS ORDERED: Insulin Regular 300 UNITS/3 ML VIAL SC SCH (17:00)
[2020-07-27] MEDS: cefTRIAXone\\ROCEPHIN 1 GM in Sodium Chloride 0.9% 100 ML IVPB SCH (17:39)
[2020-07-27 18:24] LABS: Bilirubin Negative (Negative); Blood, Urine 2+ (Negative); Clarity Extra Turbid (Clear); Glucose, Urine (Dipstick) Normal (Negative); Ketone, Urine Negative (Negative); Leukocyte 500 Leu/uL (Negative); Nitrite Negative (Negative); Protein, Urine (Dipstick) 30 mg/dL (Neg-Trace); Specific Gravity, Urine 1.012 (1.002-1.036); Urobilinogen Normal mg/dL (Less than 2); WBC/HPF Greater than 50 HPF (0-3)
[2020-07-27 18:27] LABS: Bacteria/HPF 1+ HPF (None Seen)
[2020-07-27 18:28] LABS: Urine Culture Reflex No No
[2020-07-27] MEDS: Insulin Glargine 12 UNITS in Pre-Filled Syringe 1 EACH SC SCH (20:54)
[2020-07-28] MEDS: Levothyroxine Sodium 100 MCG TAB PO SCH (05:48)
[2020-07-28] MEDS: HumaLOG 300 UNITS/3 ML VIAL SC PRN ×3 (06:23→16:46)
[2020-07-28] MEDS: azaTHIOprine 50 MG TAB PO SCH (09:02)
[2020-07-28] MEDS: Alogliptin 25 MG TAB PO SCH (09:03)
[2020-07-28] MEDS: Famotidine 20 MG TAB PO SCH (09:03)
[2020-07-28] MEDS: Calcitriol 0.25 MCG CAP PO SCH ×3 (09:03→21:09)
[2020-07-28] MEDS: Folic Acid 1 MG TAB PO SCH (09:03)
[2020-07-28 09:26] LABS: Anion Gap 13 mmol/L (10-20); BUN (Urea Nitrogen) 20 mg/dL (9.8-20.1); Calc. Creatinine Clearance 48 mL/min (70-130); Calcium 7.7 mg/dL (7.8-10.44); Carbon Dioxide 23 mmol/L (23-31); Chloride 101 mmol/L (98-107); Glucose 275 mg/dL (83-110); Sodium 133 mmol/L (136-145)
[2020-07-28] MEDS ORDERED: Calcium Gluc 4.6 MEQ/10 ML (100 MG/ML) SLOW IVP SCH (12:16)
[2020-07-28 13:42] LABS: ALT (SGPT) 14 U/L (8-55); AST (SGOT) 17 U/L (5-34); Albumin 2.8 g/dL (3.4-4.8); Alkaline Phosphatase 128 U/L (40-110); Bilirubin, Direct 0.8 mg/dL (0.1-0.3); Bilirubin, Total 1.4 mg/dL (0.2-1.2); Protein, Total 6.4 g/dL (5.8-8.1)
[2020-07-28] MEDS ORDERED: Calcium Gluconate 4.6 MEQ in Sodium Chloride 0.9% 100 ML IVPB SCH (13:45)
[2020-07-28] MEDS: cefTRIAXone\\ROCEPHIN 1 GM in Sodium Chloride 0.9% 100 ML IVPB SCH (16:45)
[2020-07-28] MEDS: HumuLIN 70/30 (300 UNITS/3 ML VIAL) SC SCH (21:06)
[2020-07-28] MEDS: Calcium Carbonate 500 MG ChewTAB PO SCH (21:09)
[2020-07-29] MEDS: Levothyroxine Sodium 100 MCG TAB PO SCH (05:19)
[2020-07-29] MEDS: Alogliptin 25 MG TAB PO SCH (08:08)
[2020-07-29] MEDS: azaTHIOprine 50 MG TAB PO SCH (08:08)
[2020-07-29] MEDS: Folic Acid 1 MG TAB PO SCH (08:08)
[2020-07-29] MEDS: Calcium Carbonate 500 MG ChewTAB PO SCH ×2 (08:08→21:38)
[2020-07-29] MEDS: HumuLIN 70/30 (300 UNITS/3 ML VIAL) SC SCH ×2 (08:11→22:09)
[2020-07-29] MEDS: Calcitriol 0.25 MCG CAP PO SCH ×3 (08:11→21:38)
[2020-07-29] MEDS: Famotidine 20 MG TAB PO SCH (08:11)
[2020-07-29] MEDS ORDERED: Albumin 25% 25 GM/100 ML BOT IVPB ONE (09:26)
[2020-07-29 10:58] LABS: Anion Gap 13 mmol/L (10-20); BUN (Urea Nitrogen) 19 mg/dL (9.8-20.1); Calc. Creatinine Clearance 44 mL/min (70-130); Calcium 8.8 mg/dL (7.8-10.44); Carbon Dioxide 23 mmol/L (23-31); Chloride 100 mmol/L (98-107); Glucose 191 mg/dL (83-110); Potassium 4.2 mmol/L (3.5-5.1); Sodium 132 mmol/L (136-145)
[2020-07-29] MEDS: Albumin 25% 25 GM/100 ML BOT IVPB SCH ×2 (11:23→17:53)
[2020-07-29 11:41] LABS: #Lymphocytes 0.4 thou/uL (1.20-3.40); #Monocytes 0.1 thou/uL (0.11-0.59); #Neutrophils 1.2 thou/uL (1.40-6.50); %Basophils 0.9 % (0.0-1.0); %Eosinophils 1.8 % (0.0-10.0); %Lymphocytes 20.6 % (21.0-51.0); %Monocytes 7.6 % (0.0-10.0); Hemoglobin 9.3 g/dL (12.0-16.0); MDiff Complete? YES; Macrocytosis MODERATE=16-30 cells (100X) (0-5/hpf); Mean Corpuscular HGB CONC 33.9 g/dL (32.0-36.0); Mean Corpuscular Hemoglobin 38.9 pg (27.0-31.0); Mean Platelet Volume 9.5 fL (7.4-10.4); Ovalocytes SLIGHT = 2-5 cells (100X) (0-1/hpf); Platelet Count 67 thou/uL (130-400); Platelet Morphology Comment Appears Decreased; RBC Distribution Width 15.5 % (11.5-14.5); Red Blood Cell (RBC) Count 2.39 mill/uL (4.20-5.40); White Blood Cell (WBC) Count 1.7 thou/uL (4.8-10.8)
[2020-07-29] MEDS: Furosemide 40 MG/4 ML VIAL SLOW IVP SCH (15:04)
[2020-07-29] MEDS: cefTRIAXone\\ROCEPHIN 1 GM in Sodium Chloride 0.9% 100 ML IVPB SCH (17:52)
[2020-07-29] MEDS: HumaLOG 300 UNITS/3 ML VIAL SC PRN (17:54)
[2020-07-30] MEDS: Albumin 25% 25 GM/100 ML BOT IVPB SCH ×5 (00:20→23:16)
[2020-07-30 05:02] LABS: Anion Gap 13 mmol/L (10-20); BUN (Urea Nitrogen) 23 mg/dL (9.8-20.1); Calc. Creatinine Clearance 43 mL/min (70-130); Calcium 9.5 mg/dL (7.8-10.44); Carbon Dioxide 28 mmol/L (23-31); Chloride 98 mmol/L (98-107); Glucose 99 mg/dL (83-110); Sodium 135 mmol/L (136-145)
[2020-07-30] MEDS: Levothyroxine Sodium 100 MCG TAB PO SCH (05:41)
[2020-07-30] MEDS: Furosemide 40 MG/4 ML VIAL SLOW IVP SCH ×2 (05:41→14:53)
[2020-07-30] MEDS: Folic Acid 1 MG TAB PO SCH (08:08)
[2020-07-30] MEDS: Alogliptin 25 MG TAB PO SCH (08:08)
[2020-07-30] MEDS: Calcitriol 0.25 MCG CAP PO SCH ×3 (08:08→23:13)
[2020-07-30] MEDS: Calcium Carbonate 500 MG ChewTAB PO SCH ×2 (08:08→23:14)
[2020-07-30] MEDS: Famotidine 20 MG TAB PO SCH (08:08)
[2020-07-30] MEDS: Cholecalciferol 1,000 UNITS (25 MCG) TAB PO SCH (08:08)
[2020-07-30] MEDS: azaTHIOprine 50 MG TAB PO SCH (08:09)
[2020-07-30] MEDS: HumuLIN 70/30 (300 UNITS/3 ML VIAL) SC SCH ×2 (08:10→23:15)
[2020-07-30] MEDS ORDERED: Albumin 25% 25 GM/100 ML BOT IVPB ONE (08:58)
[2020-07-30] MEDS ORDERED: Nitrofurantoin Monohyd/M-Cryst 100 MG CAP PO SCH (09:00)
[2020-07-30] MEDS: HumaLOG 300 UNITS/3 ML VIAL SC PRN ×2 (10:33→17:38)
[2020-07-30] MEDS ORDERED: Furosemide 40 MG/4 ML VIAL SLOW IVP SCH (14:45)
[2020-07-30] MEDS: Cephalexin 250 MG CAP PO SCH (23:15)
[2020-07-31 04:45] LABS: Hemoglobin 8.6 g/dL (12.0-16.0); Mean Corpuscular HGB CONC 33.5 g/dL (32.0-36.0); Mean Platelet Volume 9.8 fL (7.4-10.4); Platelet Count 61 thou/uL (130-400); RBC Distribution Width 15.4 % (11.5-14.5); Red Blood Cell (RBC) Count 2.26 mill/uL (4.20-5.40); White Blood Cell (WBC) Count 1.3 thou/uL (4.8-10.8)
[2020-07-31 04:58] LABS: Anion Gap 16 mmol/L (10-20); BUN (Urea Nitrogen) 29 mg/dL (9.8-20.1); Calc. Creatinine Clearance 37 mL/min (70-130); Calcium 10.5 mg/dL (7.8-10.44); Carbon Dioxide 29 mmol/L (23-31); Chloride 94 mmol/L (98-107); Glucose 158 mg/dL (83-110); Magnesium 1.5 mg/dL (1.6-2.6); Potassium 3.9 mmol/L (3.5-5.1); Sodium 135 mmol/L (136-145)
[2020-07-31 05:03] LABS: Band 8 % (5-11); Hypochromia SLIGHT = 6-15 cells (100X) (0-5/hpf); Lymphocytes 20 % (21-51); MDiff Complete? YES; Macrocytosis SLIGHT = 6-15 cells (100X) (0-5/hpf); Monocytes 4 % (0-10); Neutrophil 64 % (42-75); Reactive Lymphocytes 4 % (0-10)
[2020-07-31] MEDS: Furosemide 40 MG/4 ML VIAL SLOW IVP SCH ×2 (05:31→15:13)
[2020-07-31] MEDS: Albumin 25% 25 GM/100 ML BOT IVPB SCH (05:31)
[2020-07-31] MEDS: Levothyroxine Sodium 100 MCG TAB PO SCH (05:32)
[2020-07-31] MEDS: Alogliptin 25 MG TAB PO SCH (08:26)
[2020-07-31] MEDS: Calcium Carbonate 500 MG ChewTAB PO SCH (08:26)
[2020-07-31] MEDS: Famotidine 20 MG TAB PO SCH (08:27)
[2020-07-31] MEDS: Folic Acid 1 MG TAB PO SCH (08:28)
[2020-07-31] MEDS: Cephalexin 250 MG CAP PO SCH (08:28)
[2020-07-31] MEDS: azaTHIOprine 50 MG TAB PO SCH (08:28)
[2020-07-31] MEDS: Cholecalciferol 1,000 UNITS (25 MCG) TAB PO SCH (08:28)
[2020-07-31] MEDS: Calcitriol 0.25 MCG CAP PO SCH (08:28)
[2020-07-31] MEDS: HumuLIN 70/30 (300 UNITS/3 ML VIAL) SC SCH (08:35)
[2020-07-31] MEDS ORDERED: Calcitriol 0.25 MCG CAP PO SCH (09:00)
[2020-07-31 11:56] VITALS: TEMP 97.7
[2020-07-31 12:31] VITALS: BP 104/58
== END 2020-07-31 14:41 | disposition home or self-care (01) | DRG 872 ==
LOC: ERS 22:22 → 2NO 23:49
PROVIDERS: ADMIT Student in an Organized Health Care Education/Training Program; ATTEND Internal Medicine
DX: A41.9 Sepsis, unspecified organism (principal); I44.2 Atrioventricular block, complete; N18.4 Chronic kidney disease, stage 4 (severe); D61.818 Other pancytopenia; E87.1 Hypo-osmolality and hyponatremia; N25.81 Secondary hyperparathyroidism of renal origin; E22.2 Syndrome of inappropriate secretion of antidiuretic hormone; K21.9 Gastro-esophageal reflux disease without esophagitis; I12.9 Hypertensive chronic kidney disease with stage 1 through stage 4 chronic kidney disease, or unspecified chronic kidney disease; E11.22 Type 2 diabetes mellitus with diabetic chronic kidney disease; Z95.0 Presence of cardiac pacemaker; Z79.4 Long term (current) use of insulin; E78.5 Hyperlipidemia, unspecified; Z90.710 Acquired absence of both cervix and uterus; E11.65 Type 2 diabetes mellitus with hyperglycemia; K75.4 Autoimmune hepatitis; E89.0 Postprocedural hypothyroidism; D69.6 Thrombocytopenia, unspecified; K74.60 Unspecified cirrhosis of liver; E83.51 Hypocalcemia; D46.9 Myelodysplastic syndrome, unspecified; I87.2 Venous insufficiency (chronic) (peripheral); E55.9 Vitamin D deficiency, unspecified; B96.20 Unspecified Escherichia coli [E. coli] as the cause of diseases classified elsewhere; F17.210 Nicotine dependence, cigarettes, uncomplicated; Z86.73 Personal history of transient ischemic attack (TIA), and cerebral infarction without residual deficits; Z86.010 Personal history of colon polyps
CPT/HCPCS: 36415; 36416; 76536; 80048; 80076; 80202; 81001; 82306; 83036; 83605; 83735; 83930; 83935; 83970; 84300; 84443; 85025; 87077; 87086; 87186; 87635; 94760; 96365; J0692; J0696; J1815; J1940; J2001; J3370; J3490; J7500; P9047; U0003; U0005

== ENCOUNTER 2020-08-10 09:42 | Inpatient (IN) | payer MEDICARE, MEDICAID ==
[2020-08-10 10:39] LABS: #Lymphocytes 0.3 thou/uL (1.20-3.40); #Monocytes 0.1 thou/uL (0.11-0.59); #Neutrophils 0.8 thou/uL (1.40-6.50); %Eosinophils 0.9 % (0.0-10.0); %Lymphocytes 23.1 % (21.0-51.0); %Monocytes 6.3 % (0.0-10.0); %Neutrophils 69.7 % (42.0-75.0); Hemoglobin 9.9 g/dL (12.0-16.0); Mean Corpuscular HGB CONC 33.4 g/dL (32.0-36.0); Mean Corpuscular Hemoglobin 37.9 pg (27.0-31.0); Mean Platelet Volume 9.5 fL (7.4-10.4); Platelet Count 79 thou/uL (130-400); RBC Distribution Width 15.7 % (11.5-14.5); Red Blood Cell (RBC) Count 2.62 mill/uL (4.20-5.40); White Blood Cell (WBC) Count 1.2 thou/uL (4.8-10.8)
[2020-08-10 10:58] LABS: ALT (SGPT) 13 U/L (8-55); AST (SGOT) 48 U/L (5-34); Albumin 3.7 g/dL (3.4-4.8); Alkaline Phosphatase 92 U/L (40-110); Anion Gap 15 mmol/L (10-20); BUN (Urea Nitrogen) 45 mg/dL (9.8-20.1); Bilirubin, Total 1.8 mg/dL (0.2-1.2); Calc. Creatinine Clearance 0 mL/min (70-130); Calcium 7.7 mg/dL (7.8-10.44); Carbon Dioxide 23 mmol/L (23-31); Chloride 99 mmol/L (98-107); Globulin 3.6 g/dL (2.4-3.5); Glucose 125 mg/dL (83-110); Lipase 116 U/L (8-78); Potassium 4.3 mmol/L (3.5-5.1); Protein, Total 7.3 g/dL (5.8-8.1); Sodium 133 mmol/L (136-145)
[2020-08-10 11:20] LABS: CKMB 1.1 ng/mL (0-6.6)
[2020-08-10] MEDS ORDERED: Aspirin Chewable 81 MG TAB ONE (11:35)
[2020-08-10 12:12] LABS: Bacteria/HPF 4+ HPF (None Seen); Bilirubin Negative (Negative); Blood, Urine 2+ (Negative); Clarity Turbid (Clear); Glucose, Urine (Dipstick) Normal (Negative); Ketone, Urine Negative (Negative); Leukocyte 500 Leu/uL (Negative); Nitrite Negative (Negative); Protein, Urine (Dipstick) 200 mg/dL (Neg-Trace); Specific Gravity, Urine 1.017 (1.002-1.036); Squamous Epithelial None Seen HPF (0-3); WBC/HPF Greater than 50 HPF (0-3)
[2020-08-10] MEDS ORDERED: Ondansetron ODT 4 MG TAB PO PRN (12:37)
[2020-08-10] MEDS ORDERED: Bisacodyl 5 MG TAB PO PRN (12:37)
[2020-08-10] MEDS ORDERED: Bisacodyl 10 MG SUPP PR PRN (12:37)
[2020-08-10] MEDS ORDERED: azaTHIOprine 50 MG TAB PO SCH (13:00)
[2020-08-10] MEDS ORDERED: Dextrose 5% in Water 1,000 ML IV PRN (13:41)
[2020-08-10] MEDS ORDERED: Dextrose 50% Abboject 50 ML SYRINGE SLOW IVP PRN (13:41)
[2020-08-10] MEDS ORDERED: Ondansetron ODT 4 MG TAB SL PRN (14:15)
[2020-08-10] MEDS ORDERED: Ondansetron PF 4 MG/2 ML Vial IVP PRN (14:15)
[2020-08-10] MEDS: cefOXitin Sodium/Dextrose,Iso 1 GM in Premix Bag 1 BAG IVPB SCH (16:21)
[2020-08-10] MEDS: Heparin 5,000 UNITS/ML VIAL SC SCH ×2 (16:21→21:38)
[2020-08-10] MEDS: Carvedilol 3.125 MG TAB PO SCH (16:28)
[2020-08-10 16:48] VITALS: BMI 35.9
[2020-08-10] MEDS: Albumin 25% 25 GM/100 ML BOT IVPB SCH (17:39)
[2020-08-10 20:42] LABS: SARS-CoV-2 NAA Rapid Test Presumptive Positive (NotDetected)
[2020-08-11] MEDS: Albumin 25% 25 GM/100 ML BOT IVPB SCH ×3 (00:10→17:25)
[2020-08-11] MEDS: cefOXitin Sodium/Dextrose,Iso 1 GM in Premix Bag 1 BAG IVPB SCH ×2 (03:32→19:57)
[2020-08-11 06:14] LABS: Hemoglobin 7.9 g/dL (12.0-16.0); Mean Corpuscular HGB CONC 34.3 g/dL (32.0-36.0); Mean Corpuscular Hemoglobin 38.6 pg (27.0-31.0); Platelet Count 57 thou/uL (130-400); RBC Distribution Width 15.5 % (11.5-14.5); Red Blood Cell (RBC) Count 2.04 mill/uL (4.20-5.40); White Blood Cell (WBC) Count 0.5 thou/uL (4.8-10.8)
[2020-08-11 06:17] LABS: INR-International Normal Ratio 1.2; Prothrombin Time 14.9 sec (12.0-14.7)
[2020-08-11 06:29] LABS: Platelet Morphology Comment Appears Decreased; RBC Morphology Normal
[2020-08-11 06:36] LABS: ALT (SGPT) 10 U/L (8-55); AST (SGOT) 39 U/L (5-34); Albumin 3.5 g/dL (3.4-4.8); Alkaline Phosphatase 70 U/L (40-110); Anion Gap 13 mmol/L (10-20); BUN (Urea Nitrogen) 40 mg/dL (9.8-20.1); Calc. Creatinine Clearance 31 mL/min (70-130); Carbon Dioxide 22 mmol/L (23-31); Chloride 103 mmol/L (98-107); Globulin 2.8 g/dL (2.4-3.5); Glucose 117 mg/dL (83-110); Potassium 4.3 mmol/L (3.5-5.1); Protein, Total 6.3 g/dL (5.8-8.1); Sodium 134 mmol/L (136-145)
[2020-08-11] MEDS: Levothyroxine Sodium 100 MCG TAB PO SCH (06:41)
[2020-08-11] MEDS: Carvedilol 3.125 MG TAB PO SCH ×2 (08:42→17:27)
[2020-08-11] MEDS: Famotidine 20 MG TAB PO SCH (08:43)
[2020-08-11] MEDS: Folic Acid 1 MG TAB PO SCH (08:45)
[2020-08-11] MEDS: Heparin 5,000 UNITS/ML VIAL SC SCH ×3 (08:46→19:57)
[2020-08-11] MEDS ORDERED: azaTHIOprine 50 MG TAB PO SCH (09:00)
[2020-08-11 17:00] LABS: SARS-CoV-2 PCR by NAA DETECTED (NotDetected)
[2020-08-12] MEDS: Levothyroxine Sodium 100 MCG TAB PO SCH (05:00)
[2020-08-12] MEDS: cefOXitin Sodium/Dextrose,Iso 1 GM in Premix Bag 1 BAG IVPB SCH ×2 (05:00→15:19)
[2020-08-12 06:22] LABS: Hemoglobin 8.6 g/dL (12.0-16.0); Mean Corpuscular HGB CONC 34.5 g/dL (32.0-36.0); Mean Corpuscular Hemoglobin 39.2 pg (27.0-31.0); Mean Platelet Volume 9.5 fL (7.4-10.4); Platelet Count 56 thou/uL (130-400); RBC Distribution Width 15.4 % (11.5-14.5); Red Blood Cell (RBC) Count 2.19 mill/uL (4.20-5.40); White Blood Cell (WBC) Count 0.6 thou/uL (4.8-10.8)
[2020-08-12 06:33] LABS: Anion Gap 13 mmol/L (10-20); BUN (Urea Nitrogen) 31 mg/dL (9.8-20.1); Calc. Creatinine Clearance 36 mL/min (70-130); Calcium 7.1 mg/dL (7.8-10.44); Carbon Dioxide 24 mmol/L (23-31); Chloride 102 mmol/L (98-107); Glucose 122 mg/dL (83-110); Potassium 4.1 mmol/L (3.5-5.1); Sodium 135 mmol/L (136-145)
[2020-08-12 06:45] LABS: Band 4 % (5-11); Lymphocytes 24 % (21-51); MDiff Complete? YES; Metamyelocyte 4 % (0-0); Monocytes 4 % (0-10); Neutrophil 64 % (42-75); Nucleated RBC 1 % (0); Platelet Morphology Comment Appears Decreased
[2020-08-12] MEDS: Heparin 5,000 UNITS/ML VIAL SC SCH ×3 (08:07→21:13)
[2020-08-12] MEDS: Famotidine 20 MG TAB PO SCH (08:07)
[2020-08-12] MEDS: Carvedilol 3.125 MG TAB PO SCH ×2 (08:07→17:11)
[2020-08-12] MEDS: Acetaminophen 325 MG TAB PO PRN (08:08)
[2020-08-12] MEDS: Furosemide 40 MG TAB PO SCH (08:08)
[2020-08-12] MEDS: Spironolactone 25 MG TAB PO SCH (08:08)
[2020-08-12] MEDS: Folic Acid 1 MG TAB PO SCH (08:08)
[2020-08-12] MEDS ORDERED: Non-Formulary Item 1 EACH (Spironolactone [Spironolactone] 50 MG Tablet) PO SCH (09:00)
[2020-08-12] MEDS ORDERED: Furosemide 20 MG TAB PO SCH (09:00)
[2020-08-12 22:37] LABS: SARS-CoV-2 IgG Ab Non-Reactive (NonReactive); SARS-CoV-2 IgG Index 0.04 S/CO (< 1.40)
[2020-08-13] MEDS: Levothyroxine Sodium 100 MCG TAB PO SCH (03:28)
[2020-08-13] MEDS: cefOXitin Sodium/Dextrose,Iso 1 GM in Premix Bag 1 BAG IVPB SCH ×2 (03:28→15:37)
[2020-08-13 06:12] LABS: Hemoglobin 8.8 g/dL (12.0-16.0); Mean Corpuscular HGB CONC 35.4 g/dL (32.0-36.0); Mean Corpuscular Hemoglobin 40.4 pg (27.0-31.0); Mean Platelet Volume 10.2 fL (7.4-10.4); Platelet Count 63 thou/uL (130-400); RBC Distribution Width 15.4 % (11.5-14.5); Red Blood Cell (RBC) Count 2.18 mill/uL (4.20-5.40); White Blood Cell (WBC) Count 0.7 thou/uL (4.8-10.8)
[2020-08-13 06:20] LABS: Anion Gap 12 mmol/L (10-20); BUN (Urea Nitrogen) 26 mg/dL (9.8-20.1); Calc. Creatinine Clearance 40 mL/min (70-130); Calcium 7.1 mg/dL (7.8-10.44); Carbon Dioxide 23 mmol/L (23-31); Chloride 103 mmol/L (98-107); Glucose 132 mg/dL (83-110); Potassium 4.3 mmol/L (3.5-5.1); Sodium 134 mmol/L (136-145)
[2020-08-13 07:43] LABS: #Lymphocytes 0.1 thou/uL (1.20-3.40); #Neutrophils 0.6 thou/uL (1.40-6.50); %Eosinophils 0.2 % (0.0-10.0); %Lymphocytes 18.7 % (21.0-51.0); %Neutrophils 77.1 % (42.0-75.0); MDiff Complete? YES; Macrocytosis SLIGHT = 6-15 cells (100X) (0-5/hpf); Platelet Morphology Comment Appears Decreased; Polychromasia SLIGHT = 2-3 cells (100X) (0-2/hpf)
[2020-08-13] MEDS: Spironolactone 25 MG TAB PO SCH (08:14)
[2020-08-13] MEDS: Furosemide 40 MG TAB PO SCH (08:14)
[2020-08-13] MEDS: Carvedilol 3.125 MG TAB PO SCH ×2 (08:14→15:51)
[2020-08-13] MEDS: Folic Acid 1 MG TAB PO SCH (08:14)
[2020-08-13] MEDS: Acetaminophen 325 MG TAB PO PRN ×2 (08:14→20:10)
[2020-08-13] MEDS: Famotidine 20 MG TAB PO SCH (08:14)
[2020-08-13] MEDS: Heparin 5,000 UNITS/ML VIAL SC SCH ×3 (08:15→22:23)
[2020-08-13] MEDS: HumaLOG 300 UNITS/3 ML VIAL SC PRN (11:32)
[2020-08-13] MEDS ORDERED: Albuterol Sulfate 2.5 mg/3 ml Neb NEB PRN (21:10)
[2020-08-13 22:01] LABS: Anion Gap 14 mmol/L (10-20); BUN (Urea Nitrogen) 27 mg/dL (9.8-20.1); CRP (Inflammatory) 5.93 mg/dL (= or < 0.5); Calc. Creatinine Clearance 39 mL/min (70-130); Calcium 7.1 mg/dL (7.8-10.44); Carbon Dioxide 22 mmol/L (23-31); Chloride 103 mmol/L (98-107); Glucose 124 mg/dL (83-110); Potassium 4.4 mmol/L (3.5-5.1); Sodium 135 mmol/L (136-145)
[2020-08-13] MEDS: Albuterol 200 PUFF (6.7GM INHALER) INH PRN (22:36)
[2020-08-14] MEDS: cefOXitin Sodium/Dextrose,Iso 1 GM in Premix Bag 1 BAG IVPB SCH ×2 (04:05→15:33)
[2020-08-14] MEDS: Levothyroxine Sodium 100 MCG TAB PO SCH (05:20)
[2020-08-14] MEDS: Acetaminophen 325 MG TAB PO PRN ×2 (05:20→11:43)
[2020-08-14 07:19] LABS: Anion Gap 14 mmol/L (10-20); BUN (Urea Nitrogen) 28 mg/dL (9.8-20.1); Calc. Creatinine Clearance 36 mL/min (70-130); Calcium 7.1 mg/dL (7.8-10.44); Carbon Dioxide 23 mmol/L (23-31); Chloride 102 mmol/L (98-107); Glucose 124 mg/dL (83-110); Potassium 4.3 mmol/L (3.5-5.1); Sodium 135 mmol/L (136-145)
[2020-08-14 07:53] LABS: Hemoglobin 8.5 g/dL (12.0-16.0); Mean Corpuscular HGB CONC 33.2 g/dL (32.0-36.0); Mean Corpuscular Hemoglobin 37.8 pg (27.0-31.0); Mean Platelet Volume 9.9 fL (7.4-10.4); Platelet Count 55 thou/uL (130-400); RBC Distribution Width 15.6 % (11.5-14.5); Red Blood Cell (RBC) Count 2.25 mill/uL (4.20-5.40); White Blood Cell (WBC) Count 0.8 thou/uL (4.8-10.8)
[2020-08-14] MEDS ORDERED: Senokot 8.6 MG TAB PO PRN (08:11)
[2020-08-14] MEDS ORDERED: Senokot 8.6 MG TAB PO SCH (08:30)
[2020-08-14 08:49] LABS: Band 26 % (5-11); Lymphocytes 6 % (21-51); MDiff Complete? YES; Macrocytosis SLIGHT = 6-15 cells (100X) (0-5/hpf); Monocytes 2 % (0-10); Neutrophil 66 % (42-75); Platelet Morphology Comment Appears Decreased; Polychromasia SLIGHT = 2-3 cells (100X) (0-2/hpf)
[2020-08-14] MEDS: Folic Acid 1 MG TAB PO SCH (09:26)
[2020-08-14] MEDS: Heparin 5,000 UNITS/ML VIAL SC SCH ×3 (09:27→21:37)
[2020-08-14] MEDS: Famotidine 20 MG TAB PO SCH (09:27)
[2020-08-14] MEDS: Carvedilol 3.125 MG TAB PO SCH ×2 (09:27→16:38)
[2020-08-14] MEDS: Furosemide 40 MG TAB PO SCH (09:27)
[2020-08-14] MEDS: Spironolactone 25 MG TAB PO SCH (09:27)
[2020-08-14] MEDS: HumaLOG 300 UNITS/3 ML VIAL SC PRN (11:37)
[2020-08-14] MEDS ORDERED: REMDESIVIR (EUA) 200 MG in Sodium Chloride 0.9% 250 ML 210 ML IV SCH (17:00)
[2020-08-15] MEDS: Acetaminophen 325 MG TAB PO PRN (00:43)
[2020-08-15] MEDS: cefOXitin Sodium/Dextrose,Iso 1 GM in Premix Bag 1 BAG IVPB SCH ×2 (03:51→16:49)
[2020-08-15] MEDS: Levothyroxine Sodium 100 MCG TAB PO SCH (05:06)
[2020-08-15] MEDS: Folic Acid 1 MG TAB PO SCH (08:50)
[2020-08-15] MEDS: Carvedilol 3.125 MG TAB PO SCH ×2 (08:52→16:49)
[2020-08-15] MEDS: Furosemide 40 MG TAB PO SCH (08:52)
[2020-08-15] MEDS: Spironolactone 25 MG TAB PO SCH (08:52)
[2020-08-15] MEDS: Famotidine 20 MG TAB PO SCH (08:53)
[2020-08-15] MEDS: Heparin 5,000 UNITS/ML VIAL SC SCH ×3 (08:53→21:16)
[2020-08-15] MEDS: HumaLOG 300 UNITS/3 ML VIAL SC PRN (16:49)
[2020-08-15] MEDS ORDERED: REMDESIVIR (EUA) 100 MG in Sodium Chloride 0.9% 250 ML 230 ML IV SCH (18:00)
[2020-08-16] MEDS: cefOXitin Sodium/Dextrose,Iso 1 GM in Premix Bag 1 BAG IVPB SCH ×2 (03:35→16:55)
[2020-08-16] MEDS: Levothyroxine Sodium 100 MCG TAB PO SCH (05:57)
[2020-08-16 07:59] LABS: #Lymphocytes 0.2 thou/uL (1.20-3.40); #Monocytes 0.1 thou/uL (0.11-0.59); #Neutrophils 0.7 thou/uL (1.40-6.50); %Eosinophils 0.8 % (0.0-10.0); %Lymphocytes 17.7 % (21.0-51.0); %Monocytes 7.3 % (0.0-10.0); %Neutrophils 74.2 % (42.0-75.0); Hemoglobin 9.3 g/dL (12.0-16.0); Mean Corpuscular HGB CONC 33.3 g/dL (32.0-36.0); Mean Corpuscular Hemoglobin 38.1 pg (27.0-31.0); Mean Platelet Volume 9.9 fL (7.4-10.4); Platelet Count 62 thou/uL (130-400); RBC Distribution Width 15.5 % (11.5-14.5); Red Blood Cell (RBC) Count 2.43 mill/uL (4.20-5.40); White Blood Cell (WBC) Count 0.9 thou/uL (4.8-10.8)
[2020-08-16 08:10] LABS: Anion Gap 16 mmol/L (10-20); BUN (Urea Nitrogen) 44 mg/dL (9.8-20.1); Calc. Creatinine Clearance 22 mL/min (70-130); Calcium 6.9 mg/dL (7.8-10.44); Carbon Dioxide 20 mmol/L (23-31); Chloride 102 mmol/L (98-107); Glucose 126 mg/dL (83-110); Potassium 4.7 mmol/L (3.5-5.1); Sodium 133 mmol/L (136-145)
[2020-08-16] MEDS: Furosemide 40 MG TAB PO SCH (08:34)
[2020-08-16] MEDS: Spironolactone 25 MG TAB PO SCH (08:34)
[2020-08-16] MEDS: Heparin 5,000 UNITS/ML VIAL SC SCH ×3 (08:34→21:20)
[2020-08-16] MEDS: Famotidine 20 MG TAB PO SCH (08:34)
[2020-08-16] MEDS: Carvedilol 3.125 MG TAB PO SCH ×2 (08:34→16:55)
[2020-08-16] MEDS: Folic Acid 1 MG TAB PO SCH (08:35)
[2020-08-16] MEDS: Albumin 25% 25 GM/100 ML BOT IVPB SCH ×3 (09:20→21:18)
[2020-08-17] MEDS: Albumin 25% 25 GM/100 ML BOT IVPB SCH (03:17)
[2020-08-17] MEDS: cefOXitin Sodium/Dextrose,Iso 1 GM in Premix Bag 1 BAG IVPB SCH ×2 (04:07→16:05)
[2020-08-17] MEDS: Levothyroxine Sodium 100 MCG TAB PO SCH (05:50)
[2020-08-17 07:05] LABS: Anion Gap 17 mmol/L (10-20); BUN (Urea Nitrogen) 57 mg/dL (9.8-20.1); Calc. Creatinine Clearance 18 mL/min (70-130); Calcium 7.3 mg/dL (7.8-10.44); Carbon Dioxide 19 mmol/L (23-31); Chloride 102 mmol/L (98-107); Glucose 143 mg/dL (83-110); Potassium 4.6 mmol/L (3.5-5.1); Sodium 133 mmol/L (136-145)
[2020-08-17 07:38] LABS: #Lymphocytes 0.1 thou/uL (1.20-3.40); #Monocytes 0.1 thou/uL (0.11-0.59); #Neutrophils 0.5 thou/uL (1.40-6.50); %Eosinophils 1.5 % (0.0-10.0); %Lymphocytes 16.4 % (21.0-51.0); %Monocytes 10.9 % (0.0-10.0); %Neutrophils 71.1 % (42.0-75.0); Hemoglobin 7.6 g/dL (12.0-16.0); Mean Corpuscular HGB CONC 33.4 g/dL (32.0-36.0); Mean Platelet Volume 10.3 fL (7.4-10.4); Platelet Count 62 thou/uL (130-400); RBC Distribution Width 15.6 % (11.5-14.5); White Blood Cell (WBC) Count 0.7 thou/uL (4.8-10.8)
[2020-08-17] MEDS: Famotidine 20 MG TAB PO SCH (08:15)
[2020-08-17] MEDS: Spironolactone 25 MG TAB PO SCH (08:15)
[2020-08-17] MEDS: Heparin 5,000 UNITS/ML VIAL SC SCH ×3 (08:16→21:09)
[2020-08-17] MEDS: Furosemide 40 MG TAB PO SCH (08:16)
[2020-08-17] MEDS: Folic Acid 1 MG TAB PO SCH (08:16)
[2020-08-17] MEDS: Carvedilol 3.125 MG TAB PO SCH ×2 (08:16→16:29)
[2020-08-18] MEDS: cefOXitin Sodium/Dextrose,Iso 1 GM in Premix Bag 1 BAG IVPB SCH ×2 (04:15→17:05)
[2020-08-18] MEDS: Levothyroxine Sodium 100 MCG TAB PO SCH (05:39)
[2020-08-18] MEDS: Calcium Carbonate 500 MG ChewTAB PO SCH ×2 (09:15→21:17)
[2020-08-18] MEDS: Famotidine 20 MG TAB PO SCH (09:15)
[2020-08-18] MEDS: Carvedilol 3.125 MG TAB PO SCH ×3 (09:15→17:03)
[2020-08-18] MEDS: Folic Acid 1 MG TAB PO SCH (09:15)
[2020-08-18] MEDS: Heparin 5,000 UNITS/ML VIAL SC SCH ×2 (09:15→21:18)
[2020-08-18] MEDS ORDERED: Sodium Chloride 0.9% 1,000 ML IV SCH (11:15)
[2020-08-18] MEDS: Albumin 25% 25 GM/100 ML BOT IVPB SCH ×2 (12:38→17:56)
[2020-08-18] MEDS: HumaLOG 300 UNITS/3 ML VIAL SC PRN (12:41)
[2020-08-18 13:21] LABS: Bilirubin Negative (Negative); Blood, Urine 2+ (Negative); Clarity Turbid (Clear); Glucose, Urine (Dipstick) Normal (Negative); Ketone, Urine Trace mg/dL (Negative); Leukocyte 500 Leu/uL (Negative); Nitrite Negative (Negative); Protein, Urine (Dipstick) 300 mg/dL (Neg-Trace); Specific Gravity, Urine 1.014 (1.002-1.036); Urobilinogen Normal mg/dL (Less than 2); WBC/HPF Greater than 50 HPF (0-3)
[2020-08-18 13:23] LABS: Bacteria/HPF 1+ HPF (None Seen)
[2020-08-18] MEDS: cefOXitin Sodium 1 GM in Sodium Chloride 0.9% 100 ML IVPB SCH (16:27)
[2020-08-19] MEDS: Albumin 25% 25 GM/100 ML BOT IVPB SCH ×2 (00:31→05:19)
[2020-08-19] MEDS: cefOXitin Sodium 1 GM in Sodium Chloride 0.9% 100 ML IVPB SCH ×2 (03:37→16:15)
[2020-08-19] MEDS: Levothyroxine Sodium 100 MCG TAB PO SCH (05:19)
[2020-08-19 05:55] LABS: Hemoglobin 7.6 g/dL (12.0-16.0); Mean Corpuscular HGB CONC 34.2 g/dL (32.0-36.0); Mean Corpuscular Hemoglobin 38.2 pg (27.0-31.0); Mean Platelet Volume 9.8 fL (7.4-10.4); Platelet Count 54 thou/uL (130-400); RBC Distribution Width 15.3 % (11.5-14.5); Red Blood Cell (RBC) Count 1.98 mill/uL (4.20-5.40); White Blood Cell (WBC) Count 0.6 thou/uL (4.8-10.8)
[2020-08-19 06:09] LABS: Anion Gap 15 mmol/L (10-20); BUN (Urea Nitrogen) 73 mg/dL (9.8-20.1); Calc. Creatinine Clearance 14 mL/min (70-130); Calcium 7.7 mg/dL (7.8-10.44); Carbon Dioxide 22 mmol/L (23-31); Chloride 102 mmol/L (98-107); Glucose 137 mg/dL (83-110); Potassium 4.6 mmol/L (3.5-5.1); Sodium 134 mmol/L (136-145)
[2020-08-19 06:33] LABS: #Lymphocytes 0.1 thou/uL (1.20-3.40); #Monocytes 0.1 thou/uL (0.11-0.59); #Neutrophils 0.5 thou/uL (1.40-6.50); %Eosinophils 0.6 % (0.0-10.0); %Lymphocytes 17.1 % (21.0-51.0); %Monocytes 9.1 % (0.0-10.0); %Neutrophils 73.3 % (42.0-75.0); MDiff Complete? YES; Macrocytosis SLIGHT = 6-15 cells (100X) (0-5/hpf); Platelet Morphology Comment Appears Decreased; Polychromasia SLIGHT = 2-3 cells (100X) (0-2/hpf)
[2020-08-19] MEDS: Carvedilol 3.125 MG TAB PO SCH ×2 (08:01→16:16)
[2020-08-19] MEDS: Heparin 5,000 UNITS/ML VIAL SC SCH ×2 (08:02→20:34)
[2020-08-19] MEDS: Calcium Carbonate 500 MG ChewTAB PO SCH ×2 (08:02→20:34)
[2020-08-19] MEDS: Folic Acid 1 MG TAB PO SCH (08:02)
[2020-08-19] MEDS: Famotidine 20 MG TAB PO SCH (08:02)
[2020-08-19] MEDS ORDERED: Albumin 25% 25 GM/100 ML BOT IVPB ONE (08:24)
[2020-08-19] MEDS ORDERED: Albumin 25% 25 GM/100 ML BOT IVPB SCH (10:00)
[2020-08-19] MEDS: HumaLOG 300 UNITS/3 ML VIAL SC PRN (11:54)
[2020-08-19] MEDS: Albuterol 200 PUFF (6.7GM INHALER) INH PRN (18:21)
[2020-08-19 20:12] LABS: SARS-CoV-2 IgG Ab Non-Reactive (NonReactive); SARS-CoV-2 IgG Index 0.11 S/CO (< 1.40)
[2020-08-20] MEDS: cefOXitin Sodium 1 GM in Sodium Chloride 0.9% 100 ML IVPB SCH ×2 (05:00→17:50)
[2020-08-20] MEDS: Levothyroxine Sodium 100 MCG TAB PO SCH (05:02)
[2020-08-20 07:13] LABS: #Lymphocytes 0.1 thou/uL (1.20-3.40); #Monocytes 0.1 thou/uL (0.11-0.59); #Neutrophils 0.7 thou/uL (1.40-6.50); %Eosinophils 0.7 % (0.0-10.0); %Monocytes 12.9 % (0.0-10.0); %Neutrophils 75.3 % (42.0-75.0); Hemoglobin 7.6 g/dL (12.0-16.0); Mean Corpuscular HGB CONC 33.2 g/dL (32.0-36.0); Mean Corpuscular Hemoglobin 37.4 pg (27.0-31.0); Mean Platelet Volume 10.1 fL (7.4-10.4); Platelet Count 62 thou/uL (130-400); RBC Distribution Width 15.4 % (11.5-14.5); Red Blood Cell (RBC) Count 2.03 mill/uL (4.20-5.40); White Blood Cell (WBC) Count 0.9 thou/uL (4.8-10.8)
[2020-08-20] MEDS ORDERED: Furosemide 40 MG/4 ML VIAL SLOW IVP SCH (07:15)
[2020-08-20 07:29] LABS: ALT (SGPT) 8 U/L (8-55); AST (SGOT) 25 U/L (5-34); Albumin 3.6 g/dL (3.4-4.8); Alkaline Phosphatase 86 U/L (40-110); Anion Gap 14 mmol/L (10-20); BUN (Urea Nitrogen) 70 mg/dL (9.8-20.1); Bilirubin, Total 1.3 mg/dL (0.2-1.2); Calc. Creatinine Clearance 15 mL/min (70-130); Calcium 7.8 mg/dL (7.8-10.44); Carbon Dioxide 20 mmol/L (23-31); Chloride 106 mmol/L (98-107); Globulin 2.7 g/dL (2.4-3.5); Glucose 140 mg/dL (83-110); Potassium 4.5 mmol/L (3.5-5.1); Protein, Total 6.3 g/dL (5.8-8.1); Sodium 135 mmol/L (136-145)
[2020-08-20 07:56] LABS: Phosphorus 2.6 mg/dL (2.3-4.7)
[2020-08-20 08:00] LABS: Platelet Morphology Comment Appears Decreased
[2020-08-20 08:01] LABS: Polychromasia SLIGHT = 2-3 cells (100X) (0-2/hpf)
[2020-08-20] MEDS: Famotidine 20 MG TAB PO SCH (08:11)
[2020-08-20] MEDS: Calcium Carbonate 500 MG ChewTAB PO SCH ×2 (08:11→20:55)
[2020-08-20] MEDS: Folic Acid 1 MG TAB PO SCH (08:12)
[2020-08-20] MEDS: Carvedilol 3.125 MG TAB PO SCH ×2 (08:12→18:56)
[2020-08-20] MEDS: Heparin 5,000 UNITS/ML VIAL SC SCH ×2 (09:00→20:55)
[2020-08-20] MEDS ORDERED: Albumin 25% 25 GM/100 ML BOT IVPB ONE (09:34)
[2020-08-20] MEDS: Albumin 25% 25 GM/100 ML BOT IVPB SCH ×3 (11:34→23:13)
[2020-08-21] MEDS: cefOXitin Sodium 1 GM in Sodium Chloride 0.9% 100 ML IVPB SCH ×2 (03:02→16:12)
[2020-08-21] MEDS: Albumin 25% 25 GM/100 ML BOT IVPB SCH ×3 (04:06→23:59)
[2020-08-21] MEDS: Levothyroxine Sodium 100 MCG TAB PO SCH (05:17)
[2020-08-21 06:14] LABS: Anion Gap 15 mmol/L (10-20); BUN (Urea Nitrogen) 71 mg/dL (9.8-20.1); Calc. Creatinine Clearance 16 mL/min (70-130); Calcium 8.7 mg/dL (7.8-10.44); Carbon Dioxide 21 mmol/L (23-31); Chloride 104 mmol/L (98-107); Glucose 130 mg/dL (83-110); Potassium 4.7 mmol/L (3.5-5.1); Sodium 135 mmol/L (136-145)
[2020-08-21 07:01] LABS: Band 11 % (5-11); Eosinophils 1 % (0-10); Hemoglobin 6.5 g/dL (12.0-16.0); Lymphocytes 18 % (21-51); MDiff Complete? YES; Mean Corpuscular HGB CONC 33.8 g/dL (32.0-36.0); Mean Corpuscular Hemoglobin 37.8 pg (27.0-31.0); Mean Platelet Volume 9.3 fL (7.4-10.4); Monocytes 10 % (0-10); Neutrophil 60 % (42-75); Ovalocytes SLIGHT = 2-5 cells (100X) (0-1/hpf); Platelet Count 54 thou/uL (130-400); Platelet Morphology Comment Appears Decreased; RBC Distribution Width 15.5 % (11.5-14.5); Red Blood Cell (RBC) Count 1.72 mill/uL (4.20-5.40); White Blood Cell (WBC) Count 0.8 thou/uL (4.8-10.8)
[2020-08-21] MEDS: Calcium Carbonate 500 MG ChewTAB PO SCH ×2 (08:13→20:08)
[2020-08-21] MEDS: Folic Acid 1 MG TAB PO SCH (08:14)
[2020-08-21] MEDS: Carvedilol 3.125 MG TAB PO SCH ×2 (08:14→16:12)
[2020-08-21] MEDS: Famotidine 20 MG TAB PO SCH (08:14)
[2020-08-21] MEDS: Heparin 5,000 UNITS/ML VIAL SC SCH (08:15)
[2020-08-21] MEDS: HumaLOG 300 UNITS/3 ML VIAL SC PRN (12:48)
[2020-08-21 13:26] LABS: Hemoglobin 7.2 g/dL (12.0-16.0)
[2020-08-22] MEDS: Levothyroxine Sodium 100 MCG TAB PO SCH (06:03)
[2020-08-22] MEDS: Albumin 25% 25 GM/100 ML BOT IVPB SCH ×2 (06:03→11:01)
[2020-08-22 06:09] LABS: Anion Gap 14 mmol/L (10-20); BUN (Urea Nitrogen) 72 mg/dL (9.8-20.1); Calc. Creatinine Clearance 18 mL/min (70-130); Calcium 8.5 mg/dL (7.8-10.44); Carbon Dioxide 22 mmol/L (23-31); Chloride 105 mmol/L (98-107); Glucose 124 mg/dL (83-110); Sodium 136 mmol/L (136-145)
[2020-08-22 06:11] LABS: Hemoglobin 7.6 g/dL (12.0-16.0); Mean Corpuscular HGB CONC 33.4 g/dL (32.0-36.0); Mean Corpuscular Hemoglobin 37.9 pg (27.0-31.0); Mean Platelet Volume 9.1 fL (7.4-10.4); Platelet Count 57 thou/uL (130-400); RBC Distribution Width 15.2 % (11.5-14.5); Red Blood Cell (RBC) Count 2.01 mill/uL (4.20-5.40); White Blood Cell (WBC) Count 0.5 thou/uL (4.8-10.8)
[2020-08-22 06:12] LABS: MDiff Complete? YES; Macrocytosis SLIGHT = 6-15 cells (100X) (0-5/hpf); Platelet Morphology Comment Appears Decreased
[2020-08-22] MEDS: Famotidine 20 MG TAB PO SCH (08:24)
[2020-08-22] MEDS: Carvedilol 3.125 MG TAB PO SCH ×2 (08:24→17:24)
[2020-08-22] MEDS: Folic Acid 1 MG TAB PO SCH (08:24)
[2020-08-22] MEDS: Calcium Carbonate 500 MG ChewTAB PO SCH ×2 (08:24→20:24)
[2020-08-22] MEDS: Senokot S 8.6-50 MG TAB PO PRN ×2 (08:59→20:24)
[2020-08-22] MEDS: HumaLOG 300 UNITS/3 ML VIAL SC PRN ×2 (12:55→17:24)
[2020-08-22] MEDS: Amoxicillin/Potassium Clav 250 mg/5 ml Oral Suspension PO SCH (21:08)
[2020-08-23] MEDS: Levothyroxine Sodium 100 MCG TAB PO SCH (05:37)
[2020-08-23 06:01] LABS: Hemoglobin 7.3 g/dL (12.0-16.0); Mean Corpuscular HGB CONC 35.8 g/dL (32.0-36.0); Mean Corpuscular Hemoglobin 40.5 pg (27.0-31.0); Mean Platelet Volume 9.7 fL (7.4-10.4); Platelet Count 36 thou/uL (130-400); RBC Distribution Width 15.1 % (11.5-14.5)
[2020-08-23 06:11] LABS: White Blood Cell (WBC) Count 0.9 thou/uL (4.8-10.8)
[2020-08-23 06:17] LABS: Platelet Morphology Comment Appears Decreased
[2020-08-23 06:20] LABS: Anion Gap 13 mmol/L (10-20); BUN (Urea Nitrogen) 68 mg/dL (9.8-20.1); Calc. Creatinine Clearance 20 mL/min (70-130); Carbon Dioxide 21 mmol/L (23-31); Chloride 107 mmol/L (98-107); Glucose 126 mg/dL (83-110); Potassium 5.1 mmol/L (3.5-5.1); Sodium 136 mmol/L (136-145)
[2020-08-23] MEDS: Famotidine 20 MG TAB PO SCH (08:55)
[2020-08-23] MEDS: Amoxicillin/Potassium Clav 250 mg/5 ml Oral Suspension PO SCH (08:55)
[2020-08-23] MEDS: Calcium Carbonate 500 MG ChewTAB PO SCH (08:55)
[2020-08-23] MEDS: Folic Acid 1 MG TAB PO SCH (08:55)
[2020-08-23] MEDS: Carvedilol 3.125 MG TAB PO SCH ×2 (09:12→16:25)
[2020-08-23] MEDS: HumaLOG 300 UNITS/3 ML VIAL SC PRN (12:54)
[2020-08-23 15:53] VITALS: BP 109/61; TEMP 98.1
== END 2020-08-23 19:19 | disposition home health service (06) | DRG 177 ==
LOC: ERS 09:42 → T4-A 11:46
PROVIDERS: ADMIT Internal Medicine; ATTEND Hospitalist
PROC: XW033E5 Introduction of Remdesivir Anti-infective into Peripheral Vein, Percutaneous Approach, New Technology Group 5 (ICD-10-PCS; principal; 2020-08-14)
DX: U07.1 COVID-19 (principal); J96.01 Acute respiratory failure with hypoxia; J12.82 Pneumonia due to coronavirus disease 2019; N39.0 Urinary tract infection, site not specified; D61.818 Other pancytopenia; D84.9 Immunodeficiency, unspecified; N17.9 Acute kidney failure, unspecified; N18.4 Chronic kidney disease, stage 4 (severe); E11.22 Type 2 diabetes mellitus with diabetic chronic kidney disease; E78.5 Hyperlipidemia, unspecified; I12.9 Hypertensive chronic kidney disease with stage 1 through stage 4 chronic kidney disease, or unspecified chronic kidney disease; B96.20 Unspecified Escherichia coli [E. coli] as the cause of diseases classified elsewhere; K75.4 Autoimmune hepatitis; M19.90 Unspecified osteoarthritis, unspecified site; K74.60 Unspecified cirrhosis of liver; E03.9 Hypothyroidism, unspecified; K21.9 Gastro-esophageal reflux disease without esophagitis; E11.65 Type 2 diabetes mellitus with hyperglycemia; E83.51 Hypocalcemia; E66.9 Obesity, unspecified; T45.1X5A Adverse effect of antineoplastic and immunosuppressive drugs, initial encounter; Z90.710 Acquired absence of both cervix and uterus; Z95.0 Presence of cardiac pacemaker; Z79.899 Other long term (current) drug therapy; Z86.73 Personal history of transient ischemic attack (TIA), and cerebral infarction without residual deficits; Z68.35 Body mass index [BMI] 35.0-35.9, adult
CPT/HCPCS: 36415; 36416; 51701; 71045; 76705; 76770; 78227; 80048; 80053; 81003; 81015; 82105; 82553; 82570; 82607; 82746; 83605; 83690; 83880; 83970; 84100; 84300; 84484; 85025; 85610; 86140; 86769; 87077; 87086; 87186; 87635; 93005; 96365; A9537; J0694; J1644; J1815; J1940; J3490; J7050; J7500; P9047; U0002; U0003; U0005

== ENCOUNTER 2021-05-22 09:43 | Outpatient (CLI) | payer MEDICARE, MEDICAID | END 2021-05-22 09:44 | disposition home or self-care (01) | LOC: ULT 09:43 | PROVIDERS: ATTEND Physician Assistant Medical | DX: K75.4 Autoimmune hepatitis (principal); K74.60 Unspecified cirrhosis of liver | CPT/HCPCS: 76705 ==